=== PATIENT | male | born 1980 | race Caucasian/White ===

== ENCOUNTER 2023-01-03 13:41 | Outpatient (REF) | payer BC, SELFPAY ==
[2023-01-03 14:58] LABS: Abs Immature Grans 0.01 10^3/uL (0.0-0.06); Absolute Basophil Count 0.06 10^3/uL (0.0-0.2); Absolute Eosinophil Count 0.24 10^3/uL (0.0-0.7); Absolute Lymphocyte Count 1.52 10^3/uL (1.2-3.4); Absolute Monocyte Count 0.52 10^3/uL (0.1-0.8); Absolute Neutrophil Count 3.75 10^3/uL (1.2-6.7); Eosinophils % 3.9; HCT 48.7 % (40.0-50.0); Immature Grans % 0.2; Lymphocytes % 24.9; MCH 29.8 pg (27.0-33.0); MCHC 34.9 % (32.0-36.0); MCV 85 fL (80-95); MPV 11.2 fL (8.0-11.0); Monocytes % 8.5; Neutrophils % 61.5; Platelet Count 255 10^3/uL (130-400); RBC 5.71 10^6/uL (4.36-5.78); RDW 11.9 % (11.8-14.1); RDW-SD 36.8 fL
[2023-01-03 15:27] LABS: Hemoglobin A1C 5.2 % (<5.7)
[2023-01-03 15:29] LABS: ALT 33 U/L (16-63); AST 22 U/L (15-37); Albumin 4.3 g/dL (3.4-5.0); Alkaline Phosphatase 87 U/L (46-116); Anion Gap 8.2 mmol/L (3-11); BUN 13 mg/dL (7-18); Bilirubin, Total 0.7 mg/dL (0.2-1.0); CO2 26.8 mmol/L (21.0-32.0); CREATININE 0.8 mg/dL (0.70-1.30); Calcium 9.4 mg/dL (8.5-10.1); Chloride 105 mmol/L (98-107); Estimated GFR 113.32 (mL/min/1.73m2); Glucose 114 mg/dL (74-106); Potassium 4.5 mmol/L (3.5-5.1); Sodium 140 mmol/L (136-145); TSH (W/Ref FT4) 0.77 uIU/mL (0.36-3.74); Total Protein 7.8 g/dL (6.4-8.2)
[2023-01-03 22:56] LABS: Rheumatoid Factor <8.6 IU/mL (<12.0)
[2023-01-04 15:11] LABS: ANA Interpretation Negative (Negative)
== END 2023-01-03 13:42 | disposition home or self-care (01) ==
LOC: LBN 13:41
PROVIDERS: Visit Provider Physician Assistant Medical
DX: R42 Dizziness and giddiness (principal); K21.9 Gastro-esophageal reflux disease without esophagitis; R68.2 Dry mouth, unspecified; R73.09 Other abnormal glucose
CPT/HCPCS: 80053; 83036; 84443; 85025; 86038; 86431

== ENCOUNTER 2023-01-23 07:51 | Day surgery (SDC) | payer BC, SELFPAY ==
--- NOTE | 2023-01-23 06:47 | PGE_ITS ---
Date of Service Date of service: 01/23/23 Time of Service: 08:42 Assessment and Plan Assessment and plan (1) GERD (gastroesophageal reflux disease): Status: Chronic Assessment and plan: Mr. Botello is a pleasant 43-year-old gentleman with a history of reflux.? He comes in today because of increased reflux.? He takes 20 mg of omeprazole daily and Tums before bedtime.? Even with this he has noticed increased acid to the back of his throat.? He does have a history of eosinophilic esophagitis in the past.? We discussed doing another upper endoscopy to look for H. pylori infe ction and to make sure that he has not developed Tariq's.? Risks, benefits and complications have been reviewed. Complications include but are not limited to bleeding, pain, perforation, sore throat, aspiration, and adverse reaction to the medications.? Questions were entertained and answered to their satisfaction.? He seemed to have a good understanding of the risks, benefits and complications of the procedure and he wished to proceed. No guarantees were given or implied. Subjective Subjective Interval history since last seen: William is a pleasant 43-year-old gentleman who I am seeing today in same-day surgery again. I saw him in the office for reflux. The patient is having some worsening symptoms despite his medications. He is doing well today. He has not had any new symptoms or worsening symptoms. Exam Const General: comfortable and no acute distress [facility] Head: normocephalic and atraumatic Resp Effort & Inspection: normal respiratory effort Auscultation: clear to auscultation bilaterally Cardio Rate: regular rate Rhythm: regular rhythm GI Palpation: soft and nontender Time Spent with Patient Time Spent with Patient: 25-34 minutes Time was spent: counseling the patient
--- NOTE | 2023-01-23 06:53 | ROE_ITS ---
Date of service: 01/23/23 Time of Service: 09:11 Operative Note Operative Note DATE OF PROCEDURE: 01/23/23 PRE-OP DIAGNOSIS: GERD POST-OP DIAGNOSIS: same PROCEDURE: EGD with biopsies SURGEON: Yoko Triplett Refer to Anesthesia Record ESTIMATED BLOOD LOSS: 5 PATHOLOGY: other (Bx of antrum, body, gastric polyp and GE junction) COMPLICATIONS: None Patient's condition: stable Indications: Mr. Botello is a pleasant 43-year-old gentleman with a history of reflux.? He comes in today because of increased reflux.? He takes 20 mg of omeprazole daily and Tums before bedtime.? Even with this he has noticed increased acid to the back of his throat.? He does have a history of eosinophilic esophagitis in the past.? We discussed doing another upper endoscopy to look for H. pylori infection and to make sure that he has not developed Tariq's.? Risks, benefits and complications have been reviewed. Complications include but are not limited to bleeding, pain, perforation, sore throat, aspiration, and adverse reaction to the medications.? Questions were entertained and answered to their satisfaction.? He seemed to have a good understanding of the risks, benefits and complications of the procedure and he wished to proceed. No guarantees were given or implied. Findings: mild inflammation in the esophagus Gastric polyp Procedure Description: After informed consent was obtained the patient was take to the procedure room and placed in a supine position. Monitors were applied and a time out was done. The patients name, date of , procedure type, allergies to medications and metal in their body was reviewed. A bite block was placed and the patient was sedated. Once sedated and comfortable the gastroscope was advanced through the oropharynx which was grossly normal into the esophagus. The proximal and mid- esophagus were normal. In the distal esophagus there was mild inflammation no monica. The scope was advanced into the stomach and through the pylorus into the 3rd portion of the duodenum. The duodenum was noted to be normal. The scope was retracted back into the stomach. There were benign appearing polyps in the body. One polyp was biopsied. Biopsies were done to rule out H. pylori. There were no ulcers. The scope was retroflexed. The cardia and fundus were noted to be no rmal. There was no hiatal hernia noted. The scope was retracted back into the esophagus and biopsies were done of the GE junction to rule out Tariq's. The Z line was regular. The GE junction was at 42 cm. The scope was removed and the patient was woken up and taken back to [facility] in stable condition. Follow up: 2 weeks
[2023-01-23 08:01] VITALS: BP 131/84; PULSE 61; RESP 18; TEMP 36.5; O2SAT 100
--- NOTE | 2023-01-23 08:23 | ANES.PREOP_ITS ---
General Info Date of Service Date Performed: 01/23/23 Height: 6 ft Weight: 96 kg Body Mass Index (BMI): 28.7 Surgical Procedure: Operation Date: 01/23/23 09:05 Proposed Procedure Side Surgeon p Gastroscopy Yoko Triplett MD Actual Procedure Side Surgeon p Gastroscopy Not Applicable Yoko Triplett MD Meds Allergies and Home Medications Allergies Allergy/AdvReac Type Severity Reaction Status Date / Time Enviromental AdvReac Unknown Uncoded 01/23/23 08:06 food allergies AdvReac Unknown Uncoded 01/23/23 08:06 Home Medication Medication Instructions Recorded lisinopril 20 mg tablet 20 mg PO DAILY 01/10/23 loratadine 10 mg tablet (Claritin) 10 mg PO DAILY 01/10/23 omeprazole 20 mg capsule,delayed 20 mg PO DAILY 01/10/23 release multivitamin 1 tab PO DAILY 01/15/23 Current Visit Medications: Current Medications Generic Name Dose Route Start Last Admin Trade Name Freq PRN Reason Stop Dose Admin Ringer's Solution 1,000 mls @ 80 mls/hr 01/23/23 06:00 IV 01/23/23 23:59 INFUSION [facility] IV Miscellaneous Supplies 1 each 01/23/23 06:00 Iv Access IV 01/23/23 23:59 DIRECTED OBINNA Ondansetron HCl 4 mg 01/23/23 06:54 Ondansetron 4 Mg/2 Ml Vial IVP 02/22/23 06:53 Q4H PRN PRN Nausea / Vomiting Sodium Chloride 0 ml 01/23/23 06:00 Normal Saline Flush 10 Ml Syr IV 01/23/23 23:59 PRN PRN Sodium Chloride 0 ml 01/23/23 06:00 Normal Saline 10 Ml Vial IJ 01/23/23 23:59 DIRECTED PRN Sterile Water 0 ml 01/23/23 06:00 Water,Injection,Sterile 10 Ml Vial IJ 01/23/23 23:59 DIRECTED PRN PFSH Active Problems Active Problems: Problem Status Onset Code Low back pain M54.50 GERD (gastroesophageal reflux disease) K21.9 Sensation of lump in throat R22.1 Dizziness R42 Dry mouth R68.2 Medical History Medical History Eosinophilic esophagitis Hypertension Surgical History Surgical History History of testicular surgery 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 Also left vasectomy Tobacco Smoking/Tobacco Use Status: Former Tobacco Use Alcohol Alcohol Intake: current Alcohol intake frequency: 0-2 drinks per day Substance Use Substance use: Occasionally Substance use type: marijuana Vital Signs and Lab Results Vital Signs Most Recent Vital Signs in EMR: Most Recent Vital Signs Temp Pulse Resp BP Pulse Ox 36.5 C 61 18 131/84 100 01/23/23 08:01 01/23/23 08:01 01/23/23 08:01 01/23/23 08:01 01/23/23 08:01 Lab Results Blood Type / Crossmatch: No Data to Display Complete Blood Count: White Blood Count 6.10 10^3/uL (4.4-10.8) 01/03/23 10:05 Red Blood Count 5.71 10^6/uL (4.36-5.78) 01/03/23 10:05 Hemoglobin 17.0 g/dL (13.5-17.5) 01/03/23 10:05 Hematocrit 48.7 % (40.0-50.0) 01/03/23 10:05 Platelet Count 255 10^3/uL (130-400) 01/03/23 10:05 Complete Metabolic Panel: Sodium 140 mmol/L (136-145) 01/03/23 10:05 Potassium 4.5 mmol/L (3.5-5.1) 01/03/23 10:05 Chloride 105 mmol/L (98-107) 01/03/23 10:05 Carbon Dioxide 26.8 mmol/L (21.0-32.0) 01/03/23 10:05 BUN 13 mg/dL (7-18) 01/03/23 10:05 Creatinine 0.8 mg/dL (0.70-1.30) 01/03/23 10:05 Est GFR (CKD-EPI 2020) 113.32 (mL/min/1.73m2) 01/03/23 10:05 Calcium 9.4 mg/dL (8.5-10.1) 01/03/23 10:05 Albumin 4.3 g/dL (3.4-5.0) 01/03/23 10:05 Glucose 114 mg/dL (74-106) H 01/03/23 10:05 Hemoglobin A1c 5.2 % (<5.7) 01/03/23 10:05 Liver Function Panel: Alanine Aminotransferase (ALT/SGPT) 33 U/L (16-63) 01/03/23 10: 05 Aspartate Amino Transf (AST/SGOT) 22 U/L (15-37) 01/03/23 10:05 Coagulation Panel: No Data to Display Cardiac Panel: No Data to Display Arterial Blood Gas: No Data to Display Venous Blood Gas: No Data to Display Pancreas Panel: No Data to Display Thyroid Panel: Thyroid Stimulating Hormone (TSH) 0.77 uIU/mL (0.36-3.74) 01/03 10:05 Infectious Disease: No Data to Display Blood Cultures: No Data to Display Toxicology Panel: No Data to Display Anesthesia Assessment and Plan Anesthesia History Personal History: No History of Anesthesia Complications Family History: No Family History of Anesthesia Complications Exercise Tolerance Exercise Tolerance: Metabolic Equivalents>4 Pertinent Negatives Pertinent Negatives: No Symptoms of GERD, No Major Cardiovascular Symptoms or Complaints and No Major Pulmonary Symptoms or Complaints Cardiac & Pulmonary Exam Cardiac Exam: Normal S1/S2 Heart Sounds Pulmonary Exam: Clear Bilateral Breath Sounds Implantable Cardiac Device Does patient have a Pacemaker or an ICD?: No Airway Exam Known Difficult Airway: No Mallampati Class: 2 Mouth Opening: Normal (> 3cm) Thyromental Distance: Greater than 3 cm Neck Range of Motion: Full ROM Neck Circumference: Normal Teeth Condition: Normal Dentition ASA Classification ASA Score: ASA 2 Emergency Case?: No NPO Status NPO Status: NPO Clears >2 hours, Solids >8 hours Anesthesia Plan Resuscitation Status: Full Code Anesthesia Technique: General Anesthesia Airway Planned: Natural Airway Monitors Used: Standard Monitors
[2023-01-23 08:26] VITALS: BMI 28.7
[2023-01-23] MEDS: Lactated Ringers 1,000 ML 80 ML IV (08:32)
--- NOTE | 2023-01-23 08:39 | W.PM.DSUDISC ---
Date of service: 01/23/23 Time of Service: 09:57 Discharge Plan Disposition Patient Disposition: Home Condition: Stable Discharge Details Reason For Visit: GERD Attending Provider: Yoko Triplett Primary Care Provider: None,None Home Meds and New Rx's Prescriptions: New omeprazole 40 mg capsule,delayed release(DR/EC) 40 mg PO DAILY Qty: 30 3RF Continued multivitamin Tablet 1 tab PO DAILY lisinopril 20 mg tablet 20 mg PO DAILY loratadine [Claritin] 10 mg tablet 10 mg PO DAILY Discontinued omeprazole 20 mg capsule,delayed release(DR/EC) 20 mg PO DAILY Discharge Instructions Instructions: Diet for Stomach Ulcers and Gastritis (ED), GERD (Gastroesophageal Reflux Disease) (DC), Esophagitis (DC) Additional Instructions: Findings: inflammation at the junction of esophagus and stomach Follow up: 2 weeks Please call if you develop: fevers >101.5 Nausea or Vomiting Abdominal pain that is not transient Rectal bleeding that is more then a tbsp A hard abdomen and inability to pass gas DAY SURGERY UNIT POST ENDOSCOPY INSTRUCTIONS Instructions for everyone who is given Anesthesia: For your safety, please do the following for the next 24 Hours: a. Do not drive or operate dangerous equipment b. Do not drink alcohol beverages or use any recreational drugs for the first 24 hours or while taking pain medications. The medications in your body may have a reaction that can be dangerous. c. Do not make any important decisions or sign any important papers 1. Generally there are no restrictions on your activity after a day or so has gone by, but you may feel a bit fatigued for a few days. 2. After you arrive home you may have a light meal and return to a normal diet as you can tolerate it without feeling sick to your stomach. 3. After surgery, you may feel pain or discomfort. This should be only transient, but if it persists please contact your doctor. 4. If there are any questions regarding the findings of your procedure, please feel free to contact your doctor. 6. If you are unable to contact your doctor with a problem, contact the hospital at [phone]. 7. Continue all your regular medications unless directed otherwise. I understand the above instructions and have no questions. Signature of Patient or Responsible Adult Escort Date/Time Name of Responsible Adult Escort Signature of Nurse Date/Time Referrals: Yoko Triplett MD [ [facility] STAFF PHYSICIAN] - Activity:: Activity as Tolerated Diet:: As Tolerated Discharge Orders Discharge Orders: Discharge Order (Routine); Ordered 01/23/23 Ordered By: Yoko Triplett DS: Diagnosis Discharge Diagnosis (1) GERD (gastroesophageal reflux disease): Status: Chronic Asessment and Plan: Patient is seen and examined after their endoscopy. Patient has minimal sore throat. They have been able to tolerate liquids. They do not have any Nausea or Vomiting. They are not having any chest pain or shortness of breath. They have been able to pass gas and are not having any abdominal pain or distention. they have not vomited any blood. The vital signs have been stable-see nursing notes. We discussed findings on their endoscopy We reviewed the importance of lifestyle modifications- see diet recommendations We reviewed any new medications that the patient may be prescribed- see medicine reconciliation. Patient will either be sent a letter with the biopsy results or follow up in the office- see discharge instructions Patient was given explicit instructions for emergency follow up post endoscopy- see discharge instructions Patient verbalized understanding and was discharged in stable and satisfactory condition. See nursing notes.
--- NOTE | 2023-01-23 08:59 | STOM_PTH ---
PATIENT: William Botello LOC: [facility] U#:[id number] AGE/SX: 43/M ROOM: RE01/23/[address]: Yoko Triplett MD : 1980 BED: DIS: 01/23/2023 SPEC #: [id number] RECD: 01/23/23 12:36 STATUS: [facility] #: [id number] HANNAH: 01/23/23 08:[address]: Yoko Triplett DEPT: Surgical Specimen RECD BY: Hansa Pascal ENTERED: 01/23/23 12:38 SP TYPE: STOMACH OTHR DR: None Tissues: 1 - STOMACH BIOPSY 2 - STOMACH BIOPSY 3 - STOMACH BIOPSY 4 - ESOPHAGUS BIOPSY Procedures: GROSS AND MICRO LEVEL 4 Comments: [id number]
[2023-01-23 09:16] VITALS: PULSE 71; RESP 18; TEMP 36.4; O2SAT 94
[2023-01-23 09:19] VITALS: BP 106/73; PULSE 72; RESP 18; TEMP 36.4; O2SAT 94
[2023-01-23 09:25] VITALS: BP 116/82; RESP 18; O2SAT 97
--- NOTE | 2023-01-23 09:28 | W.ANESPOSTOP ---
Postoperative Evaluation Date, Time and Location Date Performed: 01/23/23 Time Performed: 09:28 Patient Location: Day Surgery Unit Vital Signs Most Recent Imported Vital Signs: Most Recent Vital Signs Temp Pulse Resp BP Pulse Ox 36.4 C L 72 18 116/82 97 01/23/23 09:19 01/23/23 09:19 01/23/23 09:25 01/23/23 09:25 01/23/23 09:25 Pain Score Most Recent Pain Score: Most Recent Pain Score Pain Level 0 01/23/23 09:19 Assessment Mental Status: Awake (Alert & Oriented to Patient Baseline) Airway and Respiratory Function: Patent airway with normal (patient baseline) respiratory exam Cardiovascular Function: Hemodynamically Stable Hydration Status: Adequately Hydrated Nausea & Vomiting: No Nausea or Vomiting Pain: Pt. Denies Any Pain Peripheral Nerve Block: Patient did not receive a nerve block
[2023-01-23 09:42] VITALS: BP 119/76; PULSE 55; RESP 18; TEMP 36.6; O2SAT 97
== END 2023-01-23 10:14 | disposition home or self-care (01) ==
PROVIDERS: Visit Provider Surgery
PROC: 0DJ68ZZ Inspection of Stomach, Via Natural or Artificial Opening Endoscopic (ICD-10-PCS; CPT 43235; principal; 2023-01-23 09:00)
DX: K21.9 Gastro-esophageal reflux disease without esophagitis (principal); K31.7 Polyp of stomach and duodenum; K20.90 Esophagitis, unspecified without bleeding; K31.89 Other diseases of stomach and duodenum; K22.89 Other specified disease of esophagus
CPT/HCPCS: 43239; 88305

== ENCOUNTER 2023-08-23 16:15 | Outpatient (REF) | payer BC, SELFPAY ==
[2023-08-23 14:25] LABS: Abs Immature Grans 0.02 10^3/uL (0.0-0.06); Absolute Basophil Count 0.05 10^3/uL (0.0-0.2); Absolute Eosinophil Count 0.08 10^3/uL (0.0-0.7); Absolute Lymphocyte Count 1.42 10^3/uL (1.2-3.4); Absolute Monocyte Count 0.66 10^3/uL (0.1-0.8); Basophils % 0.6; HCT 49.2 % (40.0-50.0); HGB 17.1 g/dL (13.5-17.5); Immature Grans % 0.3; Lymphocytes % 18.4; MCH 29.6 pg (27.0-33.0); MCHC 34.8 % (32.0-36.0); MCV 85 fL (80-95); Monocytes % 8.5; Neutrophils % 71.2; Platelet Count 270 10^3/uL (130-400); RBC 5.78 10^6/uL (4.36-5.78); RDW 11.7 % (11.8-14.1); RDW-SD 35.8 fL; WBC 7.73 10^3/uL (4.4-10.8)
[2023-08-23 14:45] LABS: BUN 6 mg/dL (7-18); CREATININE 0.8 mg/dL (0.70-1.30); Calcium 9.7 mg/dL (8.5-10.1); Chloride 106 mmol/L (98-107); Estimated GFR 112.61 (mL/min/1.73m2); Glucose 116 mg/dL (74-106); Potassium 4.9 mmol/L (3.5-5.1); Sodium 142 mmol/L (136-145); TSH (W/Ref FT4) 0.79 uIU/mL (0.36-3.74)
== END 2023-08-23 16:16 | disposition home or self-care (01) ==
LOC: LBN 16:15
PROVIDERS: PCP Family Medicine; Visit Provider Physician Assistant Medical
DX: I48.91 Unspecified atrial fibrillation (principal)
CPT/HCPCS: 80048; 84443; 85025

== ENCOUNTER 2023-09-10 14:45 | Outpatient (CLI) | payer BC, SELFPAY | END 2023-09-10 14:46 | disposition home or self-care (01) | PROVIDERS: PCP Family Medicine; Visit Provider Physician Assistant Medical | DX: I48.91 Unspecified atrial fibrillation (principal) | CPT/HCPCS: 93246 ==

== ENCOUNTER 2023-09-17 10:31 | Outpatient (CLI) | payer BC, SELFPAY ==
--- NOTE | 2023-09-17 10:30 | RT.EKG_ITS ---
APPROVED REPORT Exam: Resting ECG Reason for Exam: afib Patient Location: O HR:79 bpm ECG Measurements Heart Rate 79 AXIS OK 144 P 38 QRSd 96 QRS 27 QT 364 T 22 QTc 418 Conclusion Sinus rhythm...normal P axis, V-rate 50- 99 I have reviewed and interpreted ECG and agree with software generated interpretation.
== END 2023-09-17 10:32 | disposition home or self-care (01) ==
LOC: DI.CARD 10:31
PROVIDERS: PCP Family Medicine; Visit Provider Internal Medicine Interventional Cardiology
DX: I48.91 Unspecified atrial fibrillation (principal)
CPT/HCPCS: 93010

== ENCOUNTER 2023-09-30 08:41 | Outpatient (CLI) | payer BC, SELFPAY ==
--- NOTE | 2023-09-30 09:01 | ZIOP_ITS ---
Date of service: 09/30/23 Time of Service: 09:08 14 Day Emergency Vehicle Driver Referring Provider:: Radha Indications:: Unspecified atrial fibrillation Note: This was a 14-day monitor for atrial fibrillation 1. The predominant rhythm is sinus with paroxysms of atrial fibrillation and flutter, rate range 41 to 193 bpm, average 69 bpm. 2. Paroxysms of atrial fibrillation with rapid ventricular response with atrial fibrillation burden 2%. Fastest ventricular response 193 bpm 3. Few aberrantly conducted beats (Annette beats) interpreted by computer software as PVCs and triplets. 4. No pauses noted Impression: Paroxysmal atrial fibrillation with rapid ventricular response
== END 2023-09-30 08:42 | disposition home or self-care (01) ==
LOC: CARDOPNVT 08:41
PROVIDERS: PCP Family Medicine; Visit Provider Internal Medicine Interventional Cardiology
DX: I48.91 Unspecified atrial fibrillation (principal); I49.3 Ventricular premature depolarization

== ENCOUNTER → 2023-12-09 03:32 | Outpatient (CLI) | payer BC, SELFPAY ==
--- NOTE | 2023-12-09 07:00 | DI.US_ITS ---
APPROVED REPORT EXAM: Comprehensive 2D, Doppler, and color-flow Echocardiogram Patient Location: Out-Patient Color Depositing Machine Tender: Sia Shukla RDCS (AE) Indications: Paroxysmal atrial fibrillation Other Information Study Quality: Good Conclusion Normal left ventricular wall thickness and chamber size. EF is 65%. Wall motion is normal Normal right ventricular size and function Both atria are normal in size There is no structrual or hemodynamically significant valvular disease Estimated right ventriucar systolic pressure is 25 mmHg Wall motion Left Ventricle The left ventricle is normal size. The left ventricular systolic function is normal. The left ventric ular ejection fraction is within the normal range. There is normal left ventricular wall thickness. T here is normal LV segmental wall motion. There is no ventricular septal defect visualized. LVEF is 65 %. Right Ventricle The right ventricle is normal size. The right ventricular systolic function is normal. Atria The left atrium size is normal. The right atrium size is normal. The interatrial septum is intact wit h no evidence for an atrial septal defect. Aortic Valve The aortic valve is normal in structure. Aortic valve is trileaflet. There is no aortic valvular sten osis. No aortic regurgitation is present. Mitral Valve The mitral valve is normal in structure. No evidence of mitral valve stenosis. Trace mitral regurgita tion. Tricuspid Valve The tricuspid valve is normal in structure. There is no tricuspid valve stenosis. Trace tricuspid reg urgitation. The RVSP is 25.5 mmHg. Pulmonic Valve The pulmonary valve is normal in structure. There is no pulmonic valvular stenosis. There is no pulmo abner valvular regurgitation. Great Vessels The aortic root is normal in size. The ascending aorta is normal in size. Aortic arch is normal in ca liber. IVC is normal in size and collapses >50% with inspiration. Pericardium There is no pericardial effusion. 2D Dimensions IVSD d PLAX 1.04 cm M: 0.6-1.2 Ao Root d 3.34 cm M: 3.1 - 3.7 LVPW d PLAX 1.00 cm M: 0.6 - 1.2 Ao Asc Diam d 3.21 cm M: 2.6 - 3.4 LVID d PLAX 5.12 cm M: 4.2 - 5.8 LVDs 3.36 cm M: 2.5 - 4.0 LV EF Teichholz 63.1 % FS 34.35 % LV EDV (Teich) 124.9 mL LV ESV (Teich) 46.1 mL M-Mode TAPSE 2.48 cm (M/F) >1.7 Auto EF LV EDV A4C 180.9 mL LV EDV A2C 176.3 mL LV EDV BP 180.2 mL LV ESV A4C 66.6 mL LV ESV A2C 61.5 mL LV ESV BP 63.6 mL LVEF(%) A4C 63.2 % LVEF(%) A2C 65.1 % LVEF(%) BP 64.7 % LV SV A4C 114.2 ml LV SV A2C 114.8 ml LV SV BP 116.6 ml LV CO A4C 6.3 L/min LV CO A2C 6.1 L/min LV CO BP 6.2 L/min HR A4C 55.38 BPM HR A2C 53.02 BPM LV EDV Index (BP) LA Volume LA Length A4C 5.5 cm LA Length A2C 6.3 cm LA Area A4C s 20.70 cm2 LA Area A2C s 22.21 cm2 LA Vol A4C A-L 66.52 mL LA Vol A2C A-L 66.93 mL LA Vol Biplane A-L 71.1 mL LA Vol/BSA A4C A-L LA Vol/BSA A2C A-L LA Vol/BSA BP A-L 32.6 mL/m2 LA Vol A4C MOD 61.1 mL LA Vol A2C MOD 64.0 mL LA Vol BP MOD 61.4 mL RA Volume RA Area A4C 17.1 cm2 RA ESV A4C (A-L) 48.5mL RA Vol/BSA A4C A-L RA Length A4C 5.1 cm RA ESV A4C (MOD) 45.8mL LV Diastology MV E' medial 0.113 (>0.07 m/s) MV E Vmax 0.82 (0.4-1.3 m/s) MV E/E' MED 7.26 (<14) MV A Vmax 0.65 (0.4-1.3 m/s) MV E' lateral 0.114 (>0.1 m/s) E/A Ratio 1.3 MV E/E' LAT 7.20 (<14) MV E' Average 0.113 m/s MV E/E'(average) 7.23 Aortic Valve AoV Vmax 1.52 m/s LVOT Vmax 1.12 m/s AoV Peak Grad 9.3 mmHg LVOT Peak Grad 5.0 mmHg AoV Area (Vmax) 3.05 cm2 LVOT VTI 0.263 m AoV VTI 0.362 m LVOT Mean Grad 2.9 mmHg AoV Mean Gume. 1.06 m/s LVOT SV 109.59 mL AoV Mean Grad 5.2 mmHg LVOT Diam s 2.30 cm AoV Area (VTI) 3.03 cm2 Velocity Ratio 0.74 Mitral Valve MV DT 164 (160-240 msec) MV Vmax TIPS 0.87 m/s MV Mean Grad 1.2 (<2mmHg) MV VTI 0.354 m Pulmonary Valve PV Vmax 1.06 (0.5-1.5 m/s) RVOT Vmax 0.96 m/s PV Peak Grad 4.5 mmHg RVOT Peak Gr. 3.7 mmHg PV Mean Gume 0.78 m/s RVOT VTI 0.217 m PV Mean Grad 2.8 mmHg RVOT Mean Gr. 2.0 mmHg Tricuspid Valve RA Pressure 3.00 mmHg TR Vmax 2.37 m/s TV S' 0.14 m/s TR Peak Grad 22.4 mmHg RVSP (TR) 25.5 mmHg
== END ==
PROVIDERS: PCP Family Medicine; Visit Provider Internal Medicine Cardiovascular Disease
DX: I48.0 Paroxysmal atrial fibrillation (principal)
CPT/HCPCS: 93306

== ENCOUNTER 2024-10-28 08:58 | Outpatient (CLI) | payer BC, SELFPAY ==
--- NOTE | 2024-10-28 08:45 | RT.EKG_ITS ---
APPROVED REPORT Exam: Resting ECG Reason for Exam: afib Patient Location: O HR:63 bpm ECG Measurements Heart Rate 63 AXIS SC 147 P 26 QRSd 99 QRS 28 QT 377 T 23 QTc 386 Conclusion Sinus rhythm...normal P axis, V-rate 50- 99 Normal Electrocardiogram
== END 2024-10-28 08:59 | disposition home or self-care (01) ==
LOC: DI.CARD 08:59
PROVIDERS: PCP Family Medicine; Visit Provider Internal Medicine Cardiovascular Disease
DX: I48.0 Paroxysmal atrial fibrillation (principal)
CPT/HCPCS: 93010

== ENCOUNTER 2025-04-19 11:23 | Outpatient (CLI) | payer BC, SELFPAY | END 2025-04-19 11:24 | disposition home or self-care (01) | LOC: DI.CARD 11:23 | PROVIDERS: PCP Family Medicine; Visit Provider Registered Nurse | CPT/HCPCS: 93010 ==